=== PATIENT | male | born 1950 | race Caucasian/White ===

== ENCOUNTER 2017-06-12 13:11 | Outpatient (CLI) | payer MEDICARE ==
[2017-06-12 13:31] LABS: #Lymphocytes 1.6 thou/uL (1.20-3.40); #Monocytes 0.5 thou/uL (0.11-0.59); %Basophils 0.5 % (0.0-1.0); %Eosinophils 0.5 % (0.0-10.0); %Lymphocytes 22.7 % (21.0-51.0); %Monocytes 6.9 % (0.0-10.0); %Neutrophils 69.4 % (42.0-75.0); Hemoglobin 16.2 g/dL (14.0-18.0); Mean Corpuscular HGB CONC 33.2 g/dL (32.0-36.0); Mean Corpuscular Hemoglobin 30.8 pg (27.0-31.0); Mean Corpuscular Volume 92.8 fl (80.0-94.0); Mean Platelet Volume 6.1 fL (7.4-10.4); Platelet Count 246 thou/uL (130-400); RBC Distribution Width 12.2 % (11.5-14.5); Red Blood Cell (RBC) Count 5.26 mill/uL (4.70-6.10); White Blood Cell (WBC) Count 7.2 thou/uL (4.8-10.8)
[2017-06-12 13:43] LABS: Hemoglobin A1c 8.4 % (4.0-6.0)
[2017-06-12 13:51] LABS: ALT (SGPT) 36 U/L (8-55); AST (SGOT) 21 U/L (5-34); Albumin 4.6 g/dL (3.4-4.8); Alkaline Phosphatase 101 U/L (40-150); Anion Gap 16 mmol/L (10-20); BUN (Urea Nitrogen) 24 mg/dL (8.4-25.7); Bilirubin, Total 0.5 mg/dL (0.2-1.2); Calc. Creatinine Clearance 0 mL/min (70-130); Calcium 9.9 mg/dL (7.8-10.44); Carbon Dioxide 25 mmol/L (23-31); Cardiac Risk 5.6 (Less than 4.5); Chloride 104 mmol/L (98-107); Cholesterol 272 mg/dl (< 200 Desired); Estimated GFR-MDRD 44; Globulin 2.7 g/dL (2.4-3.5); Glucose 196 mg/dL (80-115); HDL Cholesterol 49 mg/dL (>60 Neg Risk); LDL Cholesterol, Calculated 188 mg/dL; Potassium 4.7 mmol/L (3.5-5.1); Protein, Total 7.3 g/dL (5.8-8.1); Sodium 140 mmol/L (136-145); Triglycerides 176 mg/dL (Less than 150)
== END 2017-06-12 13:12 | disposition home or self-care (01) ==
LOC: HPCALD 13:11
PROVIDERS: ATTEND Family Medicine
DX: E78.5 Hyperlipidemia, unspecified (principal); E11.9 Type 2 diabetes mellitus without complications; I10 Essential (primary) hypertension
CPT/HCPCS: 36415; 80053; 80061; 83036; 85025

== ENCOUNTER 2018-01-17 16:39 | Emergency (ER) | payer MEDICARE ==
[2018-01-17] MEDS ORDERED: Magnesium Citrate 300 ML BOT ONE (17:36)
--- NOTE | 2018-01-17 20:20 | RAD ---
ABDOMEN: Date: 01-17-18 FINDINGS: Four views were taken to cover the entire abdomen in the supine position. While there is no overt obstruction, there is a large amount of fecal material in the colon. No patho logic calcifications of concern was seen. There is evidence of old trauma to the lateral left iliac w ing. IMPRESSION: Mild constipation. POS: HOME
== END 2018-01-17 17:44 | disposition home or self-care (01) ==
LOC: BURERS 16:39
DX: K59.00 Constipation, unspecified (principal); E10.9 Type 1 diabetes mellitus without complications; I10 Essential (primary) hypertension; F17.220 Nicotine dependence, chewing tobacco, uncomplicated; Z79.84 Long term (current) use of oral hypoglycemic drugs
CPT/HCPCS: 74018

== ENCOUNTER 2018-03-20 02:52 | Emergency (ER) | payer MEDICARE ==
[2018-03-20] MEDS ORDERED: Ondansetron HCl/PF 4 MG/2 ML Vial ONE (03:26)
[2018-03-20 03:27] LABS: #Eosinphils 0.1 thou/uL (0.0-0.7); #Lymphocytes 1.8 thou/uL (1.20-3.40); #Monocytes 0.6 thou/uL (0.11-0.59); %Basophils 0.5 % (0.0-1.0); %Eosinophils 0.9 % (0.0-10.0); %Lymphocytes 23.8 % (21.0-51.0); %Neutrophils 66.7 % (42.0-75.0); Hemoglobin 14.5 g/dL (14.0-18.0); Mean Corpuscular HGB CONC 36.1 g/dL (32.0-36.0); Mean Corpuscular Hemoglobin 30.6 pg (27.0-31.0); Mean Corpuscular Volume 84.9 fl (80.0-94.0); Mean Platelet Volume 5.7 fL (7.4-10.4); Platelet Count 240 thou/uL (130-400); RBC Distribution Width 13.4 % (11.5-14.5); Red Blood Cell (RBC) Count 4.75 mill/uL (4.70-6.10); White Blood Cell (WBC) Count 7.6 thou/uL (4.8-10.8)
[2018-03-20 03:51] LABS: ALT (SGPT) 37 U/L (8-55); AST (SGOT) 19 U/L (5-34); Albumin 4.2 g/dL (3.4-4.8); Alkaline Phosphatase 91 U/L (40-150); Anion Gap 16 mmol/L (10-20); BUN (Urea Nitrogen) 22 mg/dL (8.4-25.7); Bilirubin, Total 0.4 mg/dL (0.2-1.2); Calc. Creatinine Clearance 0 mL/min (70-130); Calcium 9.9 mg/dL (7.8-10.44); Carbon Dioxide 26 mmol/L (23-31); Chloride 101 mmol/L (98-107); Estimated GFR-MDRD 40; Globulin 3.2 g/dL (2.4-3.5); Glucose 325 mg/dL (80-115); Potassium 4.2 mmol/L (3.5-5.1); Protein, Total 7.4 g/dL (5.8-8.1); Sodium 139 mmol/L (136-145)
[2018-03-20 03:52] LABS: CKMB 1.2 ng/mL (0-6.6); Troponin I Less than 0.010 ng/mL (< 0.028)
== END 2018-03-20 04:25 | disposition home or self-care (01) ==
LOC: BURERS 02:52
DX: H81.13 Benign paroxysmal vertigo, bilateral (principal); E10.9 Type 1 diabetes mellitus without complications; I10 Essential (primary) hypertension; F17.220 Nicotine dependence, chewing tobacco, uncomplicated; Z79.84 Long term (current) use of oral hypoglycemic drugs; Z79.899 Other long term (current) drug therapy; Z79.82 Long term (current) use of aspirin
CPT/HCPCS: 36416; 80053; 82553; 84484; 85025; 93005; 96361; 96374; J2405

== ENCOUNTER 2018-07-14 09:24 | Outpatient (CLI) | payer MEDICARE ==
--- NOTE | 2018-07-14 22:43 | ULT ---
CAROTID DOPPLER ULTRASOUND 07/14/18 Color duplex doppler ultrasonography of the carotid and vertebral system was performed for evaluation of vertigo. Documentary images and worksheets were provided and reviewed. The resolution was slightl y decreased due to the size of the patient's neck. The 2D images show small amounts of plaque formation around each carotid bulb. No large obstructing p laques were appreciated. Flows in the right carotid system showed peak values of 76/27 cm/s in the right ICA with a systolic v elocity ratio of 1.24. These are normal values. In the right external carotid artery, flow was 140/17 suggesting the possibility of a mild to moderate stenosis around 50%. Vertebral flow was not visuali zed on either the right or left side. The left carotid system showed peak values of 77/27 cm/s in the left ICA with a systolic velocity rat io of 1.16, also normal values. Flows in the left external carotid artery were normal at 71/11. Flow in the left vertebral was not seen. IMPRESSION: 1. Some plaque formation around each carotid bifurcation but no large obstructing plaques were s een. 2. Possible mild to moderate stenosis of the right ECA around 50%. 3. The patient's large neck decreased resolution and the technologist was unable to confirm flow in either vertebral artery. A CT angio of the neck might be a way to potentially visualize the verte brobasilar system and check for any obvious stenosis. POS: HOME
== END 2018-07-14 09:25 | disposition home or self-care (01) ==
LOC: BURULT 09:24
PROVIDERS: ATTEND Family Medicine
DX: R55 Syncope and collapse (principal); R42 Dizziness and giddiness; I65.23 Occlusion and stenosis of bilateral carotid arteries
CPT/HCPCS: 93880

== ENCOUNTER 2018-07-20 08:57 | Outpatient (CLI) | payer MEDICARE | END 2018-07-20 08:58 | disposition home or self-care (01) | LOC: BURCT 08:57 | PROVIDERS: ATTEND Family Medicine | DX: Z01.812 Encounter for preprocedural laboratory examination (principal); I77.9 Disorder of arteries and arterioles, unspecified | CPT/HCPCS: 36415; 82565 ==

== ENCOUNTER 2018-07-29 12:22 | Outpatient (CLI) | payer MEDICARE ==
--- NOTE | 2018-07-29 19:38 | CT ---
CT OF THE BRAIN WITHOUT CONTRAST: 07/29/18 Comparison is made with a 12/07/06 study. There is a very subtle low density area between the left basa l ganglia and insula. I do not see it on the 2006 study. This could be a small lacunar infarct of ind eterminate age. It would be more likely old than new. There are no findings of stroke otherwise. No b leeding or mass was seen. There is no edema. The visible paranasal sinuses and mastoid air cells are clear. The ventricular sizes are normal for age and atrophy. IMPRESSION: Very minimal, subtle low density area between the left basal ganglia and insula that could be a small lacunar infarct. The exam was otherwise unremarkable. Code T POS: HOME
--- NOTE | 2018-07-29 19:46 | CT ---
CT SOFT TISSUE NECK WITHOUT CONTRAST 07/29/18 Axial slices were acquired without IV contrast due to the patient's creatinine being too high. Axial and coronal reconstructions were done. Review of a 07/14/18 carotid and vertebral ultrasound was done . There is no evidence of mass or adenopathy of concern in the neck. Small scattered cervical nodes are seen bilaterally which are probably not significant. Regarding the carotid arteries, one can see a m oderate amount of plaque formation around each carotid bifurcation. Once one gets beyond that, there were no further calcifications in the carotid arteries. Since this is a noncontrast study, it is diff icult to say much about the vertebral arteries. One can see them in the transverse foramina. No gross vertebral artery calcifications were seen in the spinal region. I do not see significant calcificati on in the basilar artery. There is some mucosal thickening in each side of the sphenoid sinus. The other paranasal sinuses are clear. There is loss of the normal cervical lordosis. Calcification of the ligamentum nuchae is evide nt. There is disc space narrowing at most levels below C3. The C1-C2 level of the cervical spine was unremarkable. C2-C3 was unremarkable. C3-C4 shows bilateral moderate to severe foraminal narrowing, w orse on the left. There is mild right foraminal narrowing at C4-C5 and moderate left foraminal narrow ing. There is mild right foraminal narrowing and moderate to severe left foraminal narrowing at C5-C6. No narrowing is seen at C6-C7 or C7-T1. The upper mediastinum and lung apices are included on the study which were unremarkable. IMPRESSION: No findings of significance. Moderately severe cervical spondylosis. POS: HOME
== END 2018-07-29 12:23 | disposition home or self-care (01) ==
LOC: BURCT 12:22
PROVIDERS: ATTEND Family Medicine
DX: I77.9 Disorder of arteries and arterioles, unspecified (principal); M47.892 Other spondylosis, cervical region; R93.0 Abnormal findings on diagnostic imaging of skull and head, not elsewhere classified
CPT/HCPCS: 70450; 70490

== ENCOUNTER 2021-11-21 19:34 | Emergency (ER) | payer MEDICARE, OTHER ==
[2021-11-21] MEDS ORDERED: Clindamycin 150 MG CAP ONE (21:49)
== END 2021-11-21 21:53 | disposition home or self-care (01) ==
LOC: BURERS 19:34
DX: E10.621 Type 1 diabetes mellitus with foot ulcer (principal); L97.419 Non-pressure chronic ulcer of right heel and midfoot with unspecified severity; I10 Essential (primary) hypertension; F17.220 Nicotine dependence, chewing tobacco, uncomplicated
CPT/HCPCS: 99282

== ENCOUNTER 2021-12-19 15:20 | Emergency (ER) | payer MEDICARE ==
[2021-12-19 16:18] LABS: ALT (SGPT) 20 U/L (8-55); AST (SGOT) 16 U/L (5-34); Albumin 3.6 g/dL (3.4-4.8); Alkaline Phosphatase 111 U/L (40-110); Anion Gap 17 mmol/L (10-20); BUN (Urea Nitrogen) 25 mg/dL (8.4-25.7); Bilirubin, Total 0.5 mg/dL (0.2-1.2); Calc. Creatinine Clearance 0 mL/min (70-130); Calcium 9.1 mg/dL (7.8-10.44); Carbon Dioxide 20 mmol/L (23-31); Chloride 99 mmol/L (98-107); Globulin 3.2 g/dL (2.4-3.5); Glucose 389 mg/dL (83-110); Potassium 4.2 mmol/L (3.5-5.1); Protein, Total 6.8 g/dL (5.8-8.1); Sodium 132 mmol/L (136-145)
[2021-12-19] MEDS ORDERED: Insulin Regular 300 UNITS/3 ML VIAL ONE (16:18)
[2021-12-19 16:25] LABS: Hemoglobin 15.2 g/dL (14.0-18.0); Mean Corpuscular HGB CONC 33.3 g/dL (32.0-36.0); Mean Corpuscular Hemoglobin 30.1 pg (27.0-31.0); Mean Corpuscular Volume 90.3 fL (78.0-98.0); Mean Platelet Volume 6.3 fL (7.4-10.4); Platelet Count 190 thou/uL (130-400); RBC Distribution Width 12.7 % (11.5-14.5); Red Blood Cell (RBC) Count 5.06 mill/uL (4.70-6.10)
[2021-12-19 18:12] LABS: Band 14 % (5-11); Lymphocytes 3 % (21-51); MDiff Complete? YES; Monocytes 8 % (0-10); Neutrophil 75 % (42-75)
[2021-12-19 19:14] LABS: Lactic Acid 2.6 mmol/L (0.5-2.2)
== END 2021-12-19 19:30 | disposition home or self-care (01) ==
LOC: BURERS 15:20
DX: K52.9 Noninfective gastroenteritis and colitis, unspecified (principal); E86.0 Dehydration; E10.65 Type 1 diabetes mellitus with hyperglycemia; E78.5 Hyperlipidemia, unspecified; E78.3 Hyperchylomicronemia; I10 Essential (primary) hypertension; F17.220 Nicotine dependence, chewing tobacco, uncomplicated; Z79.899 Other long term (current) drug therapy
CPT/HCPCS: 36416; 71045; 80053; 83605; 83880; 84484; 85025; 93005; 96374; 36415-59; J1815

== ENCOUNTER 2021-12-20 14:01 | Outpatient (CLI) | payer MEDICARE | END 2021-12-20 14:02 | disposition home or self-care (01) | LOC: BURRAD 14:01 | PROVIDERS: ATTEND Family Medicine | DX: L97.412 Non-pressure chronic ulcer of right heel and midfoot with fat layer exposed (principal) ==

== ENCOUNTER 2022-01-09 14:21 | Inpatient (IN) | payer MEDICARE ==
[2022-01-09 16:40] VITALS: BMI 41.1
[2022-01-09] MEDS ORDERED: Loratadine 10 MG TAB PO PRN (17:25)
[2022-01-09] MEDS ORDERED: Polyethylene Glycol 3350 17 GM Packet PO PRN (17:25)
[2022-01-09] MEDS ORDERED: Calcium Carbonate 500 MG ChewTAB PO PRN (17:25)
[2022-01-09] MEDS ORDERED: Artificial Tear Sol 15 ML BOT EA EYE PRN (17:25)
[2022-01-09] MEDS ORDERED: Dextrose 50% Abboject 50 ML SYRINGE SLOW IVP PRN (17:28)
[2022-01-09] MEDS ORDERED: Dextrose 5% in Water 1,000 ML IV PRN (17:28)
[2022-01-09] MEDS ORDERED: metroNIDAZOLE 250 MG TAB PO SCH (17:45)
[2022-01-09] MEDS: HYDROcodone/Acetaminophen 5/325 mg Tablet PO PRN (17:52)
[2022-01-09] MEDS: HumaLOG 300 UNITS/3 ML VIAL SC PRN (17:52)
[2022-01-09] MEDS: Acetaminophen 325 MG TAB PO SCH (21:39)
[2022-01-09] MEDS: Atorvastatin Calcium 40 MG TAB PO SCH (21:40)
[2022-01-09] MEDS: metroNIDAZOLE 250 MG TAB PO SCH (21:40)
[2022-01-09] MEDS: Lantus 1000 UNITS/10 ML VIAL SC SCH (21:41)
[2022-01-10] MEDS: HYDROcodone/Acetaminophen 5/325 mg Tablet PO PRN ×2 (04:48→21:03)
[2022-01-10 05:31] LABS: #Basophils 0.1 thou/uL (0.0-0.2); #Eosinphils 0.1 thou/uL (0.0-0.7); #Monocytes 0.8 thou/uL (0.11-0.59); #Neutrophils 6.2 thou/uL (1.40-6.50); %Basophils 0.6 % (0.0-1.0); %Eosinophils 1.5 % (0.0-10.0); %Lymphocytes 21.6 % (21.0-51.0); %Monocytes 8.8 % (0.0-10.0); %Neutrophils 67.4 % (42.0-75.0); Hemoglobin 14.1 g/dL (14.0-18.0); Mean Corpuscular HGB CONC 33.9 g/dL (32.0-36.0); Mean Corpuscular Hemoglobin 30.7 pg (27.0-31.0); Mean Corpuscular Volume 90.6 fL (78.0-98.0); Mean Platelet Volume 6.2 fL (7.4-10.4); Platelet Count 300 thou/uL (130-400); RBC Distribution Width 13.2 % (11.5-14.5); Red Blood Cell (RBC) Count 4.58 mill/uL (4.70-6.10); White Blood Cell (WBC) Count 9.2 thou/uL (4.8-10.8)
[2022-01-10 06:13] LABS: ALT (SGPT) 22 U/L (8-55); AST (SGOT) 19 U/L (5-34); Albumin 3.2 g/dL (3.4-4.8); Alkaline Phosphatase 124 U/L (40-110); Anion Gap 15 mmol/L (10-20); BUN (Urea Nitrogen) 30 mg/dL (8.4-25.7); Bilirubin, Total 0.4 mg/dL (0.2-1.2); CRP (Inflammatory) 3.88 mg/dL (= or < 0.5); Calc. Creatinine Clearance 87 mL/min (70-130); Calcium 9.3 mg/dL (7.8-10.44); Carbon Dioxide 27 mmol/L (23-31); Chloride 102 mmol/L (98-107); Globulin 4.1 g/dL (2.4-3.5); Glucose 123 mg/dL (83-110); Protein, Total 7.3 g/dL (5.8-8.1); Sodium 140 mmol/L (136-145)
[2022-01-10] MEDS ORDERED: VANCOMYCIN 1 GM/200 ML IVPB SCH (09:00)
[2022-01-10] MEDS: Nebivolol HCl 5 MG TAB PO SCH (09:35)
[2022-01-10] MEDS: Losartan 25 MG TAB PO SCH (09:35)
[2022-01-10] MEDS: Acetaminophen 325 MG TAB PO SCH ×3 (09:36→21:06)
[2022-01-10] MEDS: Amlodipine 5 MG TAB PO SCH (09:37)
[2022-01-10] MEDS: Hydrochlorothiazide 25 MG TAB PO SCH (09:37)
[2022-01-10] MEDS: Polyethylene Glycol 3350 17 GM Packet PO SCH (09:38)
[2022-01-10] MEDS: Aspirin Chewable 81 MG TAB PO SCH (09:38)
[2022-01-10] MEDS: metroNIDAZOLE 250 MG TAB PO SCH ×3 (09:39→21:08)
[2022-01-10] MEDS: Enoxaparin Sodium 40 MG/0.4 ML SYRINGE SC SCH (09:39)
[2022-01-10] MEDS: Lantus 1000 UNITS/10 ML VIAL SC SCH ×2 (09:42→21:02)
[2022-01-10] MEDS: Vancomycin HCl 750 MG in Sodium Chloride 0.9% 250 ML 250 ML IVPB SCH (10:34)
[2022-01-10] MEDS ORDERED: Vancomycin HCl 750 MG VIAL ONE (10:44)
[2022-01-10] MEDS: Vancomycin HCl 1 GM in Sodium Chloride 0.9% 250 ML 250 ML IVPB SCH (12:07)
[2022-01-10] MEDS: HumaLOG 300 UNITS/3 ML VIAL SC PRN ×2 (12:16→17:05)
[2022-01-10] MEDS: Atorvastatin Calcium 40 MG TAB PO SCH (21:07)
[2022-01-11] MEDS: HYDROcodone/Acetaminophen 5/325 mg Tablet PO PRN ×2 (01:56→21:30)
[2022-01-11] MEDS: Losartan 25 MG TAB PO SCH (08:12)
[2022-01-11] MEDS: Aspirin Chewable 81 MG TAB PO SCH (08:12)
[2022-01-11] MEDS: Acetaminophen 325 MG TAB PO SCH ×3 (08:12→21:33)
[2022-01-11] MEDS: Enoxaparin Sodium 40 MG/0.4 ML SYRINGE SC SCH (08:13)
[2022-01-11] MEDS: Amlodipine 5 MG TAB PO SCH (08:13)
[2022-01-11] MEDS: Hydrochlorothiazide 25 MG TAB PO SCH (08:13)
[2022-01-11] MEDS: metroNIDAZOLE 250 MG TAB PO SCH ×3 (08:14→21:34)
[2022-01-11] MEDS: Nebivolol HCl 5 MG TAB PO SCH (08:14)
[2022-01-11] MEDS: Lantus 1000 UNITS/10 ML VIAL SC SCH ×2 (08:14→23:13)
[2022-01-11] MEDS: Polyethylene Glycol 3350 17 GM Packet PO SCH (08:14)
[2022-01-11 08:18] LABS: Vancomycin, Trough 19.8 ug/mL
[2022-01-11] MEDS ORDERED: Sodium Chloride 0.9% 100 ML ONE (08:39)
[2022-01-11] MEDS: Vancomycin HCl 750 MG in Sodium Chloride 0.9% 250 ML 250 ML IVPB SCH (08:47)
[2022-01-11] MEDS: Vancomycin HCl 1 GM in Sodium Chloride 0.9% 250 ML 250 ML IVPB SCH (10:10)
[2022-01-11] MEDS: HumaLOG 300 UNITS/3 ML VIAL SC PRN ×2 (17:05→21:36)
[2022-01-11] MEDS: tiZANidine HCl 4 MG TAB PO PRN (21:30)
[2022-01-11] MEDS: Melatonin 3 MG TAB PO PRN (21:32)
[2022-01-11] MEDS: Atorvastatin Calcium 40 MG TAB PO SCH (21:34)
[2022-01-12] MEDS: HYDROcodone/Acetaminophen 5/325 mg Tablet PO PRN ×2 (04:58→21:55)
[2022-01-12 06:28] LABS: SARS-CoV-2 NAA Rapid Test Not Detected (NotDetected)
[2022-01-12] MEDS: Vancomycin HCl 750 MG in Sodium Chloride 0.9% 250 ML 250 ML IVPB SCH (08:11)
[2022-01-12] MEDS: Acetaminophen 325 MG TAB PO SCH ×3 (08:25→20:24)
[2022-01-12] MEDS: Amlodipine 5 MG TAB PO SCH (08:27)
[2022-01-12] MEDS: Nebivolol HCl 5 MG TAB PO SCH (08:28)
[2022-01-12] MEDS: Hydrochlorothiazide 25 MG TAB PO SCH (08:29)
[2022-01-12] MEDS: Aspirin Chewable 81 MG TAB PO SCH (08:29)
[2022-01-12] MEDS: Losartan 25 MG TAB PO SCH (08:29)
[2022-01-12] MEDS: Enoxaparin Sodium 40 MG/0.4 ML SYRINGE SC SCH (08:31)
[2022-01-12] MEDS: Polyethylene Glycol 3350 17 GM Packet PO SCH (08:34)
[2022-01-12] MEDS: metroNIDAZOLE 250 MG TAB PO SCH ×3 (09:33→20:26)
[2022-01-12] MEDS: Lantus 1000 UNITS/10 ML VIAL SC SCH ×2 (09:33→20:36)
[2022-01-12] MEDS: Vancomycin HCl 1 GM in Sodium Chloride 0.9% 250 ML 250 ML IVPB SCH (09:38)
[2022-01-12] MEDS: HumaLOG 300 UNITS/3 ML VIAL SC PRN ×2 (12:46→17:30)
[2022-01-12] MEDS: Atorvastatin Calcium 40 MG TAB PO SCH (20:26)
[2022-01-12] MEDS: Melatonin 3 MG TAB PO PRN (21:56)
[2022-01-13 08:36] LABS: Vancomycin, Trough 19.8 ug/mL
[2022-01-13] MEDS: Lantus 1000 UNITS/10 ML VIAL SC SCH ×2 (08:39→20:30)
[2022-01-13] MEDS: HumaLOG 300 UNITS/3 ML VIAL SC PRN ×2 (08:40→11:29)
[2022-01-13] MEDS: Enoxaparin Sodium 40 MG/0.4 ML SYRINGE SC SCH (08:41)
[2022-01-13] MEDS: Losartan 25 MG TAB PO SCH (08:41)
[2022-01-13] MEDS: Amlodipine 5 MG TAB PO SCH (08:41)
[2022-01-13] MEDS: Nebivolol HCl 5 MG TAB PO SCH (08:42)
[2022-01-13] MEDS: Aspirin Chewable 81 MG TAB PO SCH (08:42)
[2022-01-13] MEDS: Hydrochlorothiazide 25 MG TAB PO SCH (08:42)
[2022-01-13] MEDS: Acetaminophen 325 MG TAB PO SCH ×3 (08:43→20:28)
[2022-01-13] MEDS: metroNIDAZOLE 250 MG TAB PO SCH ×3 (08:43→20:31)
[2022-01-13] MEDS: Polyethylene Glycol 3350 17 GM Packet PO SCH (08:45)
[2022-01-13] MEDS: Vancomycin HCl 750 MG in Sodium Chloride 0.9% 250 ML 250 ML IVPB SCH (08:53)
[2022-01-13] MEDS: Vancomycin HCl 1 GM in Sodium Chloride 0.9% 250 ML 250 ML IVPB SCH (11:04)
[2022-01-13] MEDS: HYDROcodone/Acetaminophen 5/325 mg Tablet PO PRN (20:26)
[2022-01-13] MEDS: Atorvastatin Calcium 40 MG TAB PO SCH (20:30)
[2022-01-14] MEDS: HYDROcodone/Acetaminophen 5/325 mg Tablet PO PRN ×2 (02:08→20:42)
[2022-01-14] MEDS: Nicotine 21 MG PATCH TOP SCH (08:20)
[2022-01-14] MEDS: Lantus 1000 UNITS/10 ML VIAL SC SCH ×2 (08:21→20:59)
[2022-01-14] MEDS: Saccharomyces boulardii 250 MG CAP PO SCH (08:26)
[2022-01-14] MEDS: metroNIDAZOLE 250 MG TAB PO SCH ×3 (08:27→21:04)
[2022-01-14] MEDS: Amlodipine 5 MG TAB PO SCH (08:27)
[2022-01-14] MEDS: Hydrochlorothiazide 25 MG TAB PO SCH (08:28)
[2022-01-14] MEDS: Aspirin Chewable 81 MG TAB PO SCH (08:28)
[2022-01-14] MEDS: Losartan 25 MG TAB PO SCH (08:28)
[2022-01-14] MEDS: Acetaminophen 325 MG TAB PO SCH ×3 (08:29→20:55)
[2022-01-14] MEDS: Enoxaparin Sodium 40 MG/0.4 ML SYRINGE SC SCH (08:30)
[2022-01-14] MEDS: Nebivolol HCl 5 MG TAB PO SCH (08:31)
[2022-01-14] MEDS: Vancomycin HCl 750 MG in Sodium Chloride 0.9% 250 ML 250 ML IVPB SCH ×2 (08:35→21:07)
[2022-01-14] MEDS: Polyethylene Glycol 3350 17 GM Packet PO SCH (10:48)
[2022-01-14] MEDS: Vancomycin HCl 1 GM in Sodium Chloride 0.9% 250 ML 250 ML IVPB SCH ×2 (10:50→20:53)
[2022-01-14] MEDS: HumaLOG 300 UNITS/3 ML VIAL SC PRN (12:28)
[2022-01-14] MEDS: Atorvastatin Calcium 40 MG TAB PO SCH (20:56)
[2022-01-15] MEDS: Hydrochlorothiazide 25 MG TAB PO SCH (08:17)
[2022-01-15] MEDS: Aspirin Chewable 81 MG TAB PO SCH (08:17)
[2022-01-15] MEDS: Losartan 25 MG TAB PO SCH (08:19)
[2022-01-15] MEDS: Nebivolol HCl 5 MG TAB PO SCH (08:19)
[2022-01-15] MEDS: Enoxaparin Sodium 40 MG/0.4 ML SYRINGE SC SCH (08:19)
[2022-01-15] MEDS: Amlodipine 5 MG TAB PO SCH (08:20)
[2022-01-15] MEDS: Saccharomyces boulardii 250 MG CAP PO SCH (08:20)
[2022-01-15] MEDS: metroNIDAZOLE 250 MG TAB PO SCH ×3 (08:21→20:43)
[2022-01-15] MEDS: Lantus 1000 UNITS/10 ML VIAL SC SCH ×2 (08:25→20:40)
[2022-01-15] MEDS: Nicotine 21 MG PATCH TOP SCH (08:28)
[2022-01-15] MEDS: Acetaminophen 325 MG TAB PO SCH ×3 (09:10→20:41)
[2022-01-15] MEDS: HYDROcodone/Acetaminophen 5/325 mg Tablet PO PRN (09:16)
[2022-01-15] MEDS: HumaLOG 300 UNITS/3 ML VIAL SC PRN ×2 (13:10→17:37)
[2022-01-15] MEDS: Polyethylene Glycol 3350 17 GM Packet PO SCH (15:07)
[2022-01-15] MEDS: tiZANidine HCl 4 MG TAB PO PRN (20:43)
[2022-01-15] MEDS: Atorvastatin Calcium 40 MG TAB PO SCH (20:43)
[2022-01-15] MEDS: Melatonin 3 MG TAB PO PRN (20:43)
[2022-01-15] MEDS: Vancomycin HCl 1 GM in Sodium Chloride 0.9% 250 ML 250 ML IVPB SCH (20:44)
[2022-01-15] MEDS: Vancomycin HCl 750 MG in Sodium Chloride 0.9% 250 ML 250 ML IVPB SCH (20:45)
[2022-01-16] MEDS: HYDROcodone/Acetaminophen 5/325 mg Tablet PO PRN ×3 (05:13→23:00)
[2022-01-16] MEDS: Acetaminophen 325 MG TAB PO SCH ×3 (08:45→20:30)
[2022-01-16] MEDS: Saccharomyces boulardii 250 MG CAP PO SCH (08:45)
[2022-01-16] MEDS: Enoxaparin Sodium 40 MG/0.4 ML SYRINGE SC SCH (08:45)
[2022-01-16] MEDS: Hydrochlorothiazide 25 MG TAB PO SCH (08:46)
[2022-01-16] MEDS: Amlodipine 5 MG TAB PO SCH (08:47)
[2022-01-16] MEDS: Losartan 25 MG TAB PO SCH (08:48)
[2022-01-16] MEDS: Aspirin Chewable 81 MG TAB PO SCH (08:49)
[2022-01-16] MEDS: metroNIDAZOLE 250 MG TAB PO SCH ×3 (08:49→20:30)
[2022-01-16] MEDS: Nicotine 21 MG PATCH TOP SCH (08:50)
[2022-01-16] MEDS: Nebivolol HCl 5 MG TAB PO SCH (08:50)
[2022-01-16] MEDS: Lantus 1000 UNITS/10 ML VIAL SC SCH ×2 (08:52→20:33)
[2022-01-16] MEDS: Polyethylene Glycol 3350 17 GM Packet PO SCH (09:00)
[2022-01-16] MEDS: HumaLOG 300 UNITS/3 ML VIAL SC PRN ×2 (17:15→20:36)
[2022-01-16 19:56] LABS: Vancomycin, Trough 17.9 ug/mL
[2022-01-16] MEDS: Vancomycin HCl 1 GM in Sodium Chloride 0.9% 250 ML 250 ML IVPB SCH (20:27)
[2022-01-16] MEDS: Atorvastatin Calcium 40 MG TAB PO SCH (20:29)
[2022-01-16] MEDS: Fish Oil 1,000 MG CAP PO SCH (20:29)
[2022-01-16] MEDS: Vancomycin HCl 750 MG in Sodium Chloride 0.9% 250 ML 250 ML IVPB SCH (20:38)
[2022-01-17 05:47] LABS: #Eosinphils 0.2 thou/uL (0.0-0.7); #Lymphocytes 1.4 thou/uL (1.20-3.40); #Monocytes 0.6 thou/uL (0.11-0.59); #Neutrophils 2.9 thou/uL (1.40-6.50); %Basophils 0.5 % (0.0-1.0); %Eosinophils 3.8 % (0.0-10.0); %Lymphocytes 27.8 % (21.0-51.0); %Monocytes 12.3 % (0.0-10.0); %Neutrophils 55.6 % (42.0-75.0); Hemoglobin 12.1 g/dL (14.0-18.0); Mean Corpuscular HGB CONC 32.9 g/dL (32.0-36.0); Mean Corpuscular Hemoglobin 30.4 pg (27.0-31.0); Mean Corpuscular Volume 92.5 fL (78.0-98.0); Mean Platelet Volume 6.3 fL (7.4-10.4); Platelet Count 224 thou/uL (130-400); Red Blood Cell (RBC) Count 3.97 mill/uL (4.70-6.10); White Blood Cell (WBC) Count 5.2 thou/uL (4.8-10.8)
[2022-01-17 06:06] LABS: ALT (SGPT) 32 U/L (8-55); AST (SGOT) 20 U/L (5-34); Albumin 3.1 g/dL (3.4-4.8); Alkaline Phosphatase 94 U/L (40-110); Anion Gap 13 mmol/L (10-20); BUN (Urea Nitrogen) 39 mg/dL (8.4-25.7); Bilirubin, Total 0.4 mg/dL (0.2-1.2); Calc. Creatinine Clearance 89 mL/min (70-130); Calcium 9.1 mg/dL (7.8-10.44); Carbon Dioxide 28 mmol/L (23-31); Chloride 107 mmol/L (98-107); Globulin 3.2 g/dL (2.4-3.5); Glucose 108 mg/dL (83-110); Potassium 4.1 mmol/L (3.5-5.1); Protein, Total 6.3 g/dL (5.8-8.1); Sodium 144 mmol/L (136-145)
[2022-01-17] MEDS: Enoxaparin Sodium 40 MG/0.4 ML SYRINGE SC SCH (08:44)
[2022-01-17] MEDS: Acetaminophen 325 MG TAB PO SCH ×3 (08:46→20:32)
[2022-01-17] MEDS: Saccharomyces boulardii 250 MG CAP PO SCH (08:49)
[2022-01-17] MEDS: Aspirin Chewable 81 MG TAB PO SCH (08:49)
[2022-01-17] MEDS: Nebivolol HCl 5 MG TAB PO SCH (08:49)
[2022-01-17] MEDS: Fish Oil 1,000 MG CAP PO SCH ×2 (08:49→20:33)
[2022-01-17] MEDS: Amlodipine 5 MG TAB PO SCH (08:50)
[2022-01-17] MEDS: Losartan 25 MG TAB PO SCH (08:50)
[2022-01-17] MEDS: Hydrochlorothiazide 25 MG TAB PO SCH (08:52)
[2022-01-17] MEDS: Lantus 1000 UNITS/10 ML VIAL SC SCH ×2 (08:54→20:56)
[2022-01-17] MEDS: metroNIDAZOLE 250 MG TAB PO SCH ×3 (08:57→20:34)
[2022-01-17] MEDS: Polyethylene Glycol 3350 17 GM Packet PO SCH (08:58)
[2022-01-17] MEDS: Nicotine 21 MG PATCH TOP SCH (09:03)
[2022-01-17] MEDS: HumaLOG 300 UNITS/3 ML VIAL SC PRN ×3 (11:56→20:54)
[2022-01-17] MEDS: Vancomycin HCl 1 GM in Sodium Chloride 0.9% 250 ML 250 ML IVPB SCH (20:29)
[2022-01-17] MEDS: Vancomycin HCl 750 MG in Sodium Chloride 0.9% 250 ML 250 ML IVPB SCH (20:30)
[2022-01-17] MEDS: Atorvastatin Calcium 40 MG TAB PO SCH (20:33)
[2022-01-17] MEDS: Melatonin 3 MG TAB PO PRN (20:34)
[2022-01-18] MEDS: HYDROcodone/Acetaminophen 5/325 mg Tablet PO PRN (02:10)
[2022-01-18] MEDS: Lantus 1000 UNITS/10 ML VIAL SC SCH ×2 (09:10→21:07)
[2022-01-18] MEDS: Fish Oil 1,000 MG CAP PO SCH ×2 (09:11→20:52)
[2022-01-18] MEDS: Losartan 25 MG TAB PO SCH (09:11)
[2022-01-18] MEDS: Aspirin Chewable 81 MG TAB PO SCH (09:11)
[2022-01-18] MEDS: Hydrochlorothiazide 25 MG TAB PO SCH (09:12)
[2022-01-18] MEDS: Amlodipine 5 MG TAB PO SCH (09:13)
[2022-01-18] MEDS: Acetaminophen 325 MG TAB PO SCH ×3 (09:13→20:52)
[2022-01-18] MEDS: Nebivolol HCl 5 MG TAB PO SCH (09:13)
[2022-01-18] MEDS: Enoxaparin Sodium 40 MG/0.4 ML SYRINGE SC SCH (09:14)
[2022-01-18] MEDS: Nicotine 21 MG PATCH TOP SCH (09:15)
[2022-01-18] MEDS: Saccharomyces boulardii 250 MG CAP PO SCH (09:15)
[2022-01-18] MEDS: metroNIDAZOLE 250 MG TAB PO SCH ×3 (09:15→20:52)
[2022-01-18] MEDS: Polyethylene Glycol 3350 17 GM Packet PO SCH (09:15)
[2022-01-18] MEDS: HumaLOG 300 UNITS/3 ML VIAL SC PRN ×3 (11:44→21:10)
[2022-01-18] MEDS ORDERED: Nystatin Powder 15 GM BOT TOP PRN (14:39)
[2022-01-18] MEDS: Atorvastatin Calcium 40 MG TAB PO SCH (20:52)
[2022-01-18] MEDS: Melatonin 3 MG TAB PO PRN (20:52)
[2022-01-18] MEDS: Vancomycin HCl 1 GM in Sodium Chloride 0.9% 250 ML 250 ML IVPB SCH (20:56)
[2022-01-18] MEDS: Vancomycin HCl 750 MG in Sodium Chloride 0.9% 250 ML 250 ML IVPB SCH (20:56)
[2022-01-19] MEDS: HYDROcodone/Acetaminophen 5/325 mg Tablet PO PRN (03:41)
[2022-01-19] MEDS: Enoxaparin Sodium 40 MG/0.4 ML SYRINGE SC SCH (08:54)
[2022-01-19] MEDS: Nebivolol HCl 5 MG TAB PO SCH (08:55)
[2022-01-19] MEDS: Fish Oil 1,000 MG CAP PO SCH ×2 (08:56→22:01)
[2022-01-19] MEDS: Acetaminophen 325 MG TAB PO SCH ×3 (08:56→22:02)
[2022-01-19] MEDS: Aspirin Chewable 81 MG TAB PO SCH (08:57)
[2022-01-19] MEDS: Hydrochlorothiazide 25 MG TAB PO SCH (08:57)
[2022-01-19] MEDS: Losartan 25 MG TAB PO SCH (08:58)
[2022-01-19] MEDS: Nicotine 21 MG PATCH TOP SCH (08:59)
[2022-01-19] MEDS: metroNIDAZOLE 250 MG TAB PO SCH ×3 (08:59→22:02)
[2022-01-19] MEDS: Saccharomyces boulardii 250 MG CAP PO SCH (08:59)
[2022-01-19] MEDS: Amlodipine 5 MG TAB PO SCH (08:59)
[2022-01-19] MEDS: Polyethylene Glycol 3350 17 GM Packet PO SCH (09:00)
[2022-01-19] MEDS: Lantus 1000 UNITS/10 ML VIAL SC SCH ×2 (09:07→22:03)
[2022-01-19] MEDS: HumaLOG 300 UNITS/3 ML VIAL SC PRN ×4 (09:12→22:03)
[2022-01-19 20:41] LABS: Vancomycin, Trough 16.4 ug/mL
[2022-01-19] MEDS: Vancomycin HCl 1 GM in Sodium Chloride 0.9% 250 ML 250 ML IVPB SCH (20:55)
[2022-01-19] MEDS: Vancomycin HCl 750 MG in Sodium Chloride 0.9% 250 ML 250 ML IVPB SCH (20:55)
[2022-01-19] MEDS: Atorvastatin Calcium 40 MG TAB PO SCH (22:01)
[2022-01-19] MEDS: Melatonin 3 MG TAB PO PRN (22:12)
[2022-01-20] MEDS: HYDROcodone/Acetaminophen 5/325 mg Tablet PO PRN ×2 (03:40→21:09)
[2022-01-20] MEDS: Nicotine 21 MG PATCH TOP SCH (08:33)
[2022-01-20] MEDS: Enoxaparin Sodium 40 MG/0.4 ML SYRINGE SC SCH (08:34)
[2022-01-20] MEDS: Acetaminophen 325 MG TAB PO SCH ×3 (08:36→21:11)
[2022-01-20] MEDS: Saccharomyces boulardii 250 MG CAP PO SCH (08:38)
[2022-01-20] MEDS: Losartan 25 MG TAB PO SCH (08:39)
[2022-01-20] MEDS: Amlodipine 5 MG TAB PO SCH (08:39)
[2022-01-20] MEDS: Aspirin Chewable 81 MG TAB PO SCH (08:40)
[2022-01-20] MEDS: Fish Oil 1,000 MG CAP PO SCH ×2 (08:40→21:11)
[2022-01-20] MEDS: Hydrochlorothiazide 25 MG TAB PO SCH (08:40)
[2022-01-20] MEDS: Lantus 1000 UNITS/10 ML VIAL SC SCH ×2 (08:42→21:16)
[2022-01-20] MEDS: Nebivolol HCl 5 MG TAB PO SCH (08:46)
[2022-01-20] MEDS: Polyethylene Glycol 3350 17 GM Packet PO SCH (08:47)
[2022-01-20] MEDS: HumaLOG 300 UNITS/3 ML VIAL SC PRN ×3 (11:21→21:21)
[2022-01-20 14:39] LABS: SARS-CoV-2 PCR by NAA Not Detected (NotDetected)
[2022-01-20] MEDS: metroNIDAZOLE 250 MG TAB PO SCH ×2 (14:46→21:15)
[2022-01-20] MEDS: Vancomycin HCl 750 MG in Sodium Chloride 0.9% 250 ML 250 ML IVPB SCH (21:07)
[2022-01-20] MEDS: Vancomycin HCl 1 GM in Sodium Chloride 0.9% 250 ML 250 ML IVPB SCH (21:08)
[2022-01-20] MEDS: Atorvastatin Calcium 40 MG TAB PO SCH (21:09)
[2022-01-20] MEDS: tiZANidine HCl 4 MG TAB PO PRN (21:09)
[2022-01-21] MEDS: HYDROcodone/Acetaminophen 5/325 mg Tablet PO PRN (04:56)
[2022-01-21] MEDS: Nebivolol HCl 5 MG TAB PO SCH (09:11)
[2022-01-21] MEDS: Hydrochlorothiazide 25 MG TAB PO SCH (09:12)
[2022-01-21] MEDS: Acetaminophen 325 MG TAB PO SCH ×3 (09:12→20:39)
[2022-01-21] MEDS: Aspirin Chewable 81 MG TAB PO SCH (09:13)
[2022-01-21] MEDS: Amlodipine 5 MG TAB PO SCH (09:14)
[2022-01-21] MEDS: Fish Oil 1,000 MG CAP PO SCH ×2 (09:14→20:41)
[2022-01-21] MEDS: Saccharomyces boulardii 250 MG CAP PO SCH (09:14)
[2022-01-21] MEDS: Losartan 25 MG TAB PO SCH (09:14)
[2022-01-21] MEDS: Enoxaparin Sodium 40 MG/0.4 ML SYRINGE SC SCH (09:15)
[2022-01-21] MEDS: metroNIDAZOLE 250 MG TAB PO SCH ×3 (09:16→20:51)
[2022-01-21] MEDS: Lantus 1000 UNITS/10 ML VIAL SC SCH ×2 (09:17→20:46)
[2022-01-21] MEDS: Nicotine 21 MG PATCH TOP SCH (09:17)
[2022-01-21] MEDS: HumaLOG 300 UNITS/3 ML VIAL SC PRN ×3 (09:18→20:43)
[2022-01-21] MEDS: Polyethylene Glycol 3350 17 GM Packet PO SCH (09:19)
[2022-01-21] MEDS: Vancomycin HCl 1 GM in Sodium Chloride 0.9% 250 ML 250 ML IVPB SCH (20:35)
[2022-01-21] MEDS: Atorvastatin Calcium 40 MG TAB PO SCH (20:41)
[2022-01-21] MEDS: Vancomycin HCl 750 MG in Sodium Chloride 0.9% 250 ML 250 ML IVPB SCH (20:49)
[2022-01-21] MEDS: Melatonin 3 MG TAB PO PRN (20:52)
[2022-01-22] MEDS: Enoxaparin Sodium 40 MG/0.4 ML SYRINGE SC SCH (08:43)
[2022-01-22] MEDS: Fish Oil 1,000 MG CAP PO SCH ×2 (08:43→20:04)
[2022-01-22] MEDS: Nicotine 21 MG PATCH TOP SCH (08:43)
[2022-01-22] MEDS: Acetaminophen 325 MG TAB PO SCH ×3 (08:44→20:05)
[2022-01-22] MEDS: Amlodipine 5 MG TAB PO SCH (08:45)
[2022-01-22] MEDS: Saccharomyces boulardii 250 MG CAP PO SCH (08:46)
[2022-01-22] MEDS: Losartan 25 MG TAB PO SCH (08:46)
[2022-01-22] MEDS: Hydrochlorothiazide 25 MG TAB PO SCH (08:47)
[2022-01-22] MEDS: Aspirin Chewable 81 MG TAB PO SCH (08:48)
[2022-01-22] MEDS: metroNIDAZOLE 250 MG TAB PO SCH ×3 (08:48→20:04)
[2022-01-22] MEDS: Nebivolol HCl 5 MG TAB PO SCH (08:51)
[2022-01-22] MEDS: Lantus 1000 UNITS/10 ML VIAL SC SCH ×2 (09:01→20:06)
[2022-01-22] MEDS: HumaLOG 300 UNITS/3 ML VIAL SC PRN ×2 (09:05→11:24)
[2022-01-22] MEDS: HYDROcodone/Acetaminophen 5/325 mg Tablet PO PRN (11:20)
[2022-01-22] MEDS: Polyethylene Glycol 3350 17 GM Packet PO SCH (11:24)
[2022-01-22] MEDS: Atorvastatin Calcium 40 MG TAB PO SCH (20:04)
[2022-01-22] MEDS: Vancomycin HCl 750 MG in Sodium Chloride 0.9% 250 ML 250 ML IVPB SCH (20:07)
[2022-01-22] MEDS: Vancomycin HCl 1 GM in Sodium Chloride 0.9% 250 ML 250 ML IVPB SCH (20:08)
[2022-01-22] MEDS: Melatonin 3 MG TAB PO PRN (20:29)
[2022-01-23] MEDS: HYDROcodone/Acetaminophen 5/325 mg Tablet PO PRN ×3 (03:28→23:19)
[2022-01-23] MEDS: Hydrochlorothiazide 25 MG TAB PO SCH (10:19)
[2022-01-23] MEDS: Fish Oil 1,000 MG CAP PO SCH ×2 (10:20→20:34)
[2022-01-23] MEDS: Lantus 1000 UNITS/10 ML VIAL SC SCH ×2 (10:20→20:33)
[2022-01-23] MEDS: Amlodipine 5 MG TAB PO SCH (10:20)
[2022-01-23] MEDS: Saccharomyces boulardii 250 MG CAP PO SCH (10:21)
[2022-01-23] MEDS: Aspirin Chewable 81 MG TAB PO SCH (10:21)
[2022-01-23] MEDS: Losartan 25 MG TAB PO SCH (10:22)
[2022-01-23] MEDS: Acetaminophen 325 MG TAB PO SCH ×3 (10:22→20:35)
[2022-01-23] MEDS: metroNIDAZOLE 250 MG TAB PO SCH ×3 (10:23→20:34)
[2022-01-23] MEDS: Nebivolol HCl 5 MG TAB PO SCH (10:23)
[2022-01-23] MEDS: Enoxaparin Sodium 40 MG/0.4 ML SYRINGE SC SCH (10:24)
[2022-01-23] MEDS: Nicotine 21 MG PATCH TOP SCH (10:44)
[2022-01-23] MEDS: Polyethylene Glycol 3350 17 GM Packet PO SCH (11:00)
[2022-01-23] MEDS: HumaLOG 300 UNITS/3 ML VIAL SC PRN ×2 (17:01→20:45)
[2022-01-23] MEDS: Vancomycin HCl 750 MG in Sodium Chloride 0.9% 250 ML 250 ML IVPB SCH (20:32)
[2022-01-23] MEDS: Vancomycin HCl 1 GM in Sodium Chloride 0.9% 250 ML 250 ML IVPB SCH (20:33)
[2022-01-23] MEDS: Atorvastatin Calcium 40 MG TAB PO SCH (20:34)
[2022-01-23] MEDS: Melatonin 3 MG TAB PO PRN (20:45)
[2022-01-24 04:50] LABS: #Eosinphils 0.2 thou/uL (0.0-0.7); #Lymphocytes 1.4 thou/uL (1.20-3.40); #Monocytes 0.8 thou/uL (0.11-0.59); #Neutrophils 3.9 thou/uL (1.40-6.50); %Basophils 0.4 % (0.0-1.0); %Eosinophils 2.7 % (0.0-10.0); %Lymphocytes 22.3 % (21.0-51.0); %Monocytes 12.3 % (0.0-10.0); %Neutrophils 62.3 % (42.0-75.0); Hemoglobin 12.5 g/dL (14.0-18.0); Mean Corpuscular HGB CONC 33.6 g/dL (32.0-36.0); Mean Corpuscular Hemoglobin 30.6 pg (27.0-31.0); Mean Corpuscular Volume 91.3 fL (78.0-98.0); Platelet Count 201 thou/uL (130-400); RBC Distribution Width 14.5 % (11.5-14.5); Red Blood Cell (RBC) Count 4.08 mill/uL (4.70-6.10); White Blood Cell (WBC) Count 6.2 thou/uL (4.8-10.8)
[2022-01-24 05:01] LABS: ALT (SGPT) 25 U/L (8-55); AST (SGOT) 16 U/L (5-34); Albumin 3.2 g/dL (3.4-4.8); Alkaline Phosphatase 102 U/L (40-110); Anion Gap 14 mmol/L (10-20); BUN (Urea Nitrogen) 41 mg/dL (8.4-25.7); Bilirubin, Total 0.4 mg/dL (0.2-1.2); Calc. Creatinine Clearance 97 mL/min (70-130); Calcium 9.4 mg/dL (7.8-10.44); Carbon Dioxide 28 mmol/L (23-31); Chloride 105 mmol/L (98-107); Globulin 3.1 g/dL (2.4-3.5); Glucose 140 mg/dL (83-110); Potassium 4.4 mmol/L (3.5-5.1); Protein, Total 6.3 g/dL (5.8-8.1); Sodium 143 mmol/L (136-145)
[2022-01-24] MEDS: Enoxaparin Sodium 40 MG/0.4 ML SYRINGE SC SCH (08:24)
[2022-01-24] MEDS: Polyethylene Glycol 3350 17 GM Packet PO SCH (08:24)
[2022-01-24] MEDS: metroNIDAZOLE 250 MG TAB PO SCH ×3 (08:25→20:42)
[2022-01-24] MEDS: Hydrochlorothiazide 25 MG TAB PO SCH (08:25)
[2022-01-24] MEDS: Acetaminophen 325 MG TAB PO SCH ×3 (08:26→20:40)
[2022-01-24] MEDS: Aspirin Chewable 81 MG TAB PO SCH (08:26)
[2022-01-24] MEDS: Fish Oil 1,000 MG CAP PO SCH ×2 (08:26→20:40)
[2022-01-24] MEDS: Saccharomyces boulardii 250 MG CAP PO SCH (08:27)
[2022-01-24] MEDS: Losartan 25 MG TAB PO SCH (08:27)
[2022-01-24] MEDS: Amlodipine 5 MG TAB PO SCH (08:27)
[2022-01-24] MEDS: Lantus 1000 UNITS/10 ML VIAL SC SCH ×2 (08:28→20:45)
[2022-01-24] MEDS: Nebivolol HCl 5 MG TAB PO SCH (08:39)
[2022-01-24] MEDS: HYDROcodone/Acetaminophen 5/325 mg Tablet PO PRN ×2 (09:38→22:49)
[2022-01-24] MEDS: HumaLOG 300 UNITS/3 ML VIAL SC PRN (15:29)
[2022-01-24] MEDS: Nicotine 21 MG PATCH TOP SCH (15:56)
[2022-01-24 20:17] LABS: Vancomycin, Trough 21.9 ug/mL
[2022-01-24] MEDS: Vancomycin HCl 1 GM in Sodium Chloride 0.9% 250 ML 250 ML IVPB SCH (20:29)
[2022-01-24] MEDS: Vancomycin HCl 750 MG in Sodium Chloride 0.9% 250 ML 250 ML IVPB SCH (20:35)
[2022-01-24] MEDS: Atorvastatin Calcium 40 MG TAB PO SCH (20:42)
[2022-01-24] MEDS: Melatonin 3 MG TAB PO PRN (20:44)
[2022-01-25] MEDS: HYDROcodone/Acetaminophen 5/325 mg Tablet PO PRN ×2 (08:00→20:27)
[2022-01-25] MEDS: Enoxaparin Sodium 40 MG/0.4 ML SYRINGE SC SCH (08:58)
[2022-01-25] MEDS: Saccharomyces boulardii 250 MG CAP PO SCH (08:59)
[2022-01-25] MEDS: Hydrochlorothiazide 25 MG TAB PO SCH (08:59)
[2022-01-25] MEDS: Losartan 25 MG TAB PO SCH (09:00)
[2022-01-25] MEDS: Amlodipine 5 MG TAB PO SCH (09:00)
[2022-01-25] MEDS: Fish Oil 1,000 MG CAP PO SCH ×2 (09:01→20:24)
[2022-01-25] MEDS: metroNIDAZOLE 250 MG TAB PO SCH ×3 (09:02→20:24)
[2022-01-25] MEDS: Aspirin Chewable 81 MG TAB PO SCH (09:03)
[2022-01-25] MEDS: Acetaminophen 325 MG TAB PO SCH ×3 (09:03→21:00)
[2022-01-25] MEDS: Nebivolol HCl 5 MG TAB PO SCH (09:03)
[2022-01-25] MEDS: Polyethylene Glycol 3350 17 GM Packet PO SCH (09:04)
[2022-01-25] MEDS: Lantus 1000 UNITS/10 ML VIAL SC SCH ×3 (09:10→20:49)
[2022-01-25] MEDS: HumaLOG 300 UNITS/3 ML VIAL SC PRN ×2 (12:08→17:10)
[2022-01-25] MEDS: Nicotine 21 MG PATCH TOP SCH (15:45)
[2022-01-25] MEDS: Atorvastatin Calcium 40 MG TAB PO SCH (20:25)
[2022-01-25] MEDS: Vancomycin HCl 1 GM in Sodium Chloride 0.9% 250 ML 250 ML IVPB SCH (20:26)
[2022-01-25 20:35] LABS: Vancomycin, Trough 19.1 ug/mL
[2022-01-25] MEDS: Melatonin 3 MG TAB PO PRN (20:53)
[2022-01-26] MEDS: HYDROcodone/Acetaminophen 5/325 mg Tablet PO PRN ×3 (00:39→21:44)
[2022-01-26] MEDS: Losartan 25 MG TAB PO SCH (08:26)
[2022-01-26] MEDS: Enoxaparin Sodium 40 MG/0.4 ML SYRINGE SC SCH (08:26)
[2022-01-26] MEDS: Fish Oil 1,000 MG CAP PO SCH ×2 (08:26→20:21)
[2022-01-26] MEDS: Acetaminophen 325 MG TAB PO SCH ×3 (08:27→20:21)
[2022-01-26] MEDS: Saccharomyces boulardii 250 MG CAP PO SCH (08:28)
[2022-01-26] MEDS: Amlodipine 5 MG TAB PO SCH (08:28)
[2022-01-26] MEDS: Nebivolol HCl 5 MG TAB PO SCH (08:28)
[2022-01-26] MEDS: Hydrochlorothiazide 25 MG TAB PO SCH (08:29)
[2022-01-26] MEDS: metroNIDAZOLE 250 MG TAB PO SCH ×3 (08:30→20:21)
[2022-01-26] MEDS: Aspirin Chewable 81 MG TAB PO SCH (08:30)
[2022-01-26] MEDS: Lantus 1000 UNITS/10 ML VIAL SC SCH ×2 (08:30→20:19)
[2022-01-26] MEDS: Polyethylene Glycol 3350 17 GM Packet PO SCH (08:41)
[2022-01-26] MEDS: HumaLOG 300 UNITS/3 ML VIAL SC PRN ×3 (12:25→20:20)
[2022-01-26] MEDS: Nicotine 21 MG PATCH TOP SCH (15:13)
[2022-01-26] MEDS: Vancomycin HCl 1 GM in Sodium Chloride 0.9% 250 ML 250 ML IVPB SCH (20:17)
[2022-01-26] MEDS: Vancomycin HCl 750 MG in Sodium Chloride 0.9% 250 ML 250 ML IVPB SCH (20:18)
[2022-01-26] MEDS: Atorvastatin Calcium 40 MG TAB PO SCH (20:21)
[2022-01-26] MEDS: Melatonin 3 MG TAB PO PRN (21:44)
[2022-01-27] MEDS: HYDROcodone/Acetaminophen 5/325 mg Tablet PO PRN ×3 (02:50→21:02)
[2022-01-27] MEDS: Nebivolol HCl 5 MG TAB PO SCH (08:30)
[2022-01-27] MEDS: Losartan 25 MG TAB PO SCH (08:30)
[2022-01-27] MEDS: metroNIDAZOLE 250 MG TAB PO SCH ×3 (08:30→20:39)
[2022-01-27] MEDS: Hydrochlorothiazide 25 MG TAB PO SCH (08:31)
[2022-01-27] MEDS: Fish Oil 1,000 MG CAP PO SCH ×2 (08:31→20:39)
[2022-01-27] MEDS: Aspirin Chewable 81 MG TAB PO SCH (08:31)
[2022-01-27] MEDS: Amlodipine 5 MG TAB PO SCH (08:32)
[2022-01-27] MEDS: Saccharomyces boulardii 250 MG CAP PO SCH (08:33)
[2022-01-27] MEDS: Acetaminophen 325 MG TAB PO SCH ×3 (08:33→20:39)
[2022-01-27] MEDS: Polyethylene Glycol 3350 17 GM Packet PO SCH (08:33)
[2022-01-27] MEDS: Lantus 1000 UNITS/10 ML VIAL SC SCH ×2 (08:33→20:38)
[2022-01-27] MEDS: Enoxaparin Sodium 40 MG/0.4 ML SYRINGE SC SCH (08:34)
[2022-01-27] MEDS: HumaLOG 300 UNITS/3 ML VIAL SC PRN ×3 (08:34→20:38)
[2022-01-27 16:01] LABS: SARS-CoV-2 PCR by NAA Not Detected (NotDetected)
[2022-01-27] MEDS: Nicotine 21 MG PATCH TOP SCH (17:08)
[2022-01-27 19:19] LABS: Vancomycin, Trough 17.4 ug/mL
[2022-01-27] MEDS: Atorvastatin Calcium 40 MG TAB PO SCH (20:39)
[2022-01-27] MEDS: Vancomycin HCl 1 GM in Sodium Chloride 0.9% 250 ML 250 ML IVPB SCH (20:40)
[2022-01-27] MEDS: Vancomycin HCl 750 MG in Sodium Chloride 0.9% 250 ML 250 ML IVPB SCH (20:41)
[2022-01-27] MEDS: Melatonin 3 MG TAB PO PRN (21:03)
[2022-01-28] MEDS: HYDROcodone/Acetaminophen 5/325 mg Tablet PO PRN ×3 (07:31→21:06)
[2022-01-28] MEDS: Lantus 1000 UNITS/10 ML VIAL SC SCH ×2 (09:13→21:08)
[2022-01-28] MEDS: HumaLOG 300 UNITS/3 ML VIAL SC PRN ×3 (09:13→21:10)
[2022-01-28] MEDS: Enoxaparin Sodium 40 MG/0.4 ML SYRINGE SC SCH (09:14)
[2022-01-28] MEDS: Losartan 25 MG TAB PO SCH (09:15)
[2022-01-28] MEDS: Hydrochlorothiazide 25 MG TAB PO SCH (09:15)
[2022-01-28] MEDS: Fish Oil 1,000 MG CAP PO SCH ×2 (09:15→21:05)
[2022-01-28] MEDS: Saccharomyces boulardii 250 MG CAP PO SCH (09:15)
[2022-01-28] MEDS: Aspirin Chewable 81 MG TAB PO SCH (09:16)
[2022-01-28] MEDS: Amlodipine 5 MG TAB PO SCH (09:16)
[2022-01-28] MEDS: Nebivolol HCl 5 MG TAB PO SCH (09:17)
[2022-01-28] MEDS: Acetaminophen 325 MG TAB PO SCH ×3 (09:17→21:07)
[2022-01-28] MEDS: metroNIDAZOLE 250 MG TAB PO SCH ×3 (09:17→21:06)
[2022-01-28] MEDS: Polyethylene Glycol 3350 17 GM Packet PO SCH (09:20)
[2022-01-28] MEDS: Nicotine 21 MG PATCH TOP SCH (16:35)
[2022-01-28] MEDS: Vancomycin HCl 1 GM in Sodium Chloride 0.9% 250 ML 250 ML IVPB SCH (21:04)
[2022-01-28] MEDS: Melatonin 3 MG TAB PO PRN (21:05)
[2022-01-28] MEDS: Vancomycin HCl 750 MG in Sodium Chloride 0.9% 250 ML 250 ML IVPB SCH (21:05)
[2022-01-28] MEDS: Atorvastatin Calcium 40 MG TAB PO SCH (21:06)
[2022-01-29] MEDS: HYDROcodone/Acetaminophen 5/325 mg Tablet PO PRN ×3 (02:41→20:39)
[2022-01-29] MEDS: Acetaminophen 325 MG TAB PO SCH ×3 (09:30→20:41)
[2022-01-29] MEDS: Losartan 25 MG TAB PO SCH (09:52)
[2022-01-29] MEDS: Aspirin Chewable 81 MG TAB PO SCH (09:52)
[2022-01-29] MEDS: Saccharomyces boulardii 250 MG CAP PO SCH (09:52)
[2022-01-29] MEDS: Fish Oil 1,000 MG CAP PO SCH ×2 (09:52→20:38)
[2022-01-29] MEDS: Amlodipine 5 MG TAB PO SCH (09:53)
[2022-01-29] MEDS: Hydrochlorothiazide 25 MG TAB PO SCH (09:53)
[2022-01-29] MEDS: Nebivolol HCl 5 MG TAB PO SCH (09:53)
[2022-01-29] MEDS: Enoxaparin Sodium 40 MG/0.4 ML SYRINGE SC SCH (09:54)
[2022-01-29] MEDS: Lantus 1000 UNITS/10 ML VIAL SC SCH ×2 (09:55→20:42)
[2022-01-29] MEDS: Polyethylene Glycol 3350 17 GM Packet PO SCH (09:56)
[2022-01-29] MEDS: metroNIDAZOLE 250 MG TAB PO SCH ×3 (10:00→20:41)
[2022-01-29] MEDS: HumaLOG 300 UNITS/3 ML VIAL SC PRN ×2 (16:43→20:42)
[2022-01-29] MEDS: Nicotine 21 MG PATCH TOP SCH (16:44)
[2022-01-29 19:18] LABS: Vancomycin, Trough 19.9 ug/mL
[2022-01-29] MEDS: Vancomycin HCl 750 MG in Sodium Chloride 0.9% 250 ML 250 ML IVPB SCH (20:34)
[2022-01-29] MEDS: Vancomycin HCl 1 GM in Sodium Chloride 0.9% 250 ML 250 ML IVPB SCH (20:36)
[2022-01-29] MEDS: Atorvastatin Calcium 40 MG TAB PO SCH (20:38)
[2022-01-29] MEDS: Melatonin 3 MG TAB PO PRN (20:41)
[2022-01-30] MEDS: HYDROcodone/Acetaminophen 5/325 mg Tablet PO PRN ×3 (02:59→21:11)
[2022-01-30] MEDS: Hydrochlorothiazide 25 MG TAB PO SCH (09:46)
[2022-01-30] MEDS: Enoxaparin Sodium 40 MG/0.4 ML SYRINGE SC SCH (09:46)
[2022-01-30] MEDS: metroNIDAZOLE 250 MG TAB PO SCH ×3 (09:47→21:11)
[2022-01-30] MEDS: Losartan 25 MG TAB PO SCH (09:47)
[2022-01-30] MEDS: Fish Oil 1,000 MG CAP PO SCH ×2 (09:47→21:10)
[2022-01-30] MEDS: Aspirin Chewable 81 MG TAB PO SCH (09:47)
[2022-01-30] MEDS: Saccharomyces boulardii 250 MG CAP PO SCH (09:47)
[2022-01-30] MEDS: Amlodipine 5 MG TAB PO SCH (09:48)
[2022-01-30] MEDS: Acetaminophen 325 MG TAB PO SCH ×3 (09:49→21:43)
[2022-01-30] MEDS: Polyethylene Glycol 3350 17 GM Packet PO SCH (09:50)
[2022-01-30] MEDS: Nebivolol HCl 5 MG TAB PO SCH (09:50)
[2022-01-30] MEDS: Lantus 1000 UNITS/10 ML VIAL SC SCH ×2 (09:56→21:15)
[2022-01-30] MEDS: Nicotine 21 MG PATCH TOP SCH (18:15)
[2022-01-30 20:08] LABS: Vancomycin, Trough 20.1 ug/mL
[2022-01-30 20:10] LABS: ALT (SGPT) 21 U/L (8-55); AST (SGOT) 14 U/L (5-34); Albumin 3.4 g/dL (3.4-4.8); Alkaline Phosphatase 96 U/L (40-110); Anion Gap 15 mmol/L (10-20); BUN (Urea Nitrogen) 43 mg/dL (8.4-25.7); Bilirubin, Total 0.4 mg/dL (0.2-1.2); Calc. Creatinine Clearance 85 mL/min (70-130); Calcium 9.1 mg/dL (7.8-10.44); Carbon Dioxide 27 mmol/L (23-31); Chloride 103 mmol/L (98-107); Globulin 3.1 g/dL (2.4-3.5); Glucose 135 mg/dL (83-110); Protein, Total 6.5 g/dL (5.8-8.1); Sodium 141 mmol/L (136-145)
[2022-01-30 20:22] LABS: #Eosinphils 0.1 thou/uL (0.0-0.7); #Lymphocytes 1.5 thou/uL (1.20-3.40); #Monocytes 0.7 thou/uL (0.11-0.59); %Basophils 0.7 % (0.0-1.0); %Eosinophils 1.9 % (0.0-10.0); %Lymphocytes 23.6 % (21.0-51.0); %Monocytes 11.1 % (0.0-10.0); %Neutrophils 62.6 % (42.0-75.0); Mean Corpuscular HGB CONC 33.1 g/dL (32.0-36.0); Mean Corpuscular Hemoglobin 30.9 pg (27.0-31.0); Mean Corpuscular Volume 93.3 fL (78.0-98.0); Mean Platelet Volume 6.2 fL (7.4-10.4); Platelet Count 197 thou/uL (130-400); RBC Distribution Width 14.5 % (11.5-14.5); White Blood Cell (WBC) Count 6.3 thou/uL (4.8-10.8)
[2022-01-30] MEDS: Atorvastatin Calcium 40 MG TAB PO SCH (21:11)
[2022-01-30] MEDS: Melatonin 3 MG TAB PO PRN (21:13)
[2022-01-30] MEDS: Vancomycin HCl 1 GM in Sodium Chloride 0.9% 250 ML 250 ML IVPB SCH (21:16)
[2022-01-30] MEDS: Vancomycin HCl 750 MG in Sodium Chloride 0.9% 250 ML 250 ML IVPB SCH (21:17)
[2022-01-31] MEDS: HYDROcodone/Acetaminophen 5/325 mg Tablet PO PRN ×2 (01:31→08:20)
[2022-01-31 05:25] LABS: #Eosinphils 0.1 thou/uL (0.0-0.7); #Lymphocytes 1.4 thou/uL (1.20-3.40); #Monocytes 0.7 thou/uL (0.11-0.59); #Neutrophils 3.3 thou/uL (1.40-6.50); %Basophils 0.3 % (0.0-1.0); %Eosinophils 2.1 % (0.0-10.0); %Lymphocytes 26.1 % (21.0-51.0); %Neutrophils 59.5 % (42.0-75.0); Hemoglobin 11.8 g/dL (14.0-18.0); Mean Corpuscular HGB CONC 33.2 g/dL (32.0-36.0); Mean Corpuscular Hemoglobin 30.8 pg (27.0-31.0); Mean Corpuscular Volume 92.7 fL (78.0-98.0); Mean Platelet Volume 5.8 fL (7.4-10.4); Platelet Count 163 thou/uL (130-400); RBC Distribution Width 14.4 % (11.5-14.5); Red Blood Cell (RBC) Count 3.84 mill/uL (4.70-6.10); White Blood Cell (WBC) Count 5.5 thou/uL (4.8-10.8)
[2022-01-31 05:46] LABS: ALT (SGPT) 20 U/L (8-55); AST (SGOT) 14 U/L (5-34); Albumin 3.2 g/dL (3.4-4.8); Alkaline Phosphatase 88 U/L (40-110); Anion Gap 12 mmol/L (10-20); BUN (Urea Nitrogen) 44 mg/dL (8.4-25.7); Bilirubin, Total 0.3 mg/dL (0.2-1.2); Calc. Creatinine Clearance 80 mL/min (70-130); Calcium 9.1 mg/dL (7.8-10.44); Carbon Dioxide 28 mmol/L (23-31); Chloride 105 mmol/L (98-107); Globulin 2.9 g/dL (2.4-3.5); Potassium 4.3 mmol/L (3.5-5.1); Protein, Total 6.1 g/dL (5.8-8.1); Sodium 141 mmol/L (136-145)
[2022-01-31 06:00] LABS: Glucose 178 mg/dL (83-110)
[2022-01-31] MEDS: Lantus 1000 UNITS/10 ML VIAL SC SCH ×2 (08:21→20:56)
[2022-01-31] MEDS: Enoxaparin Sodium 40 MG/0.4 ML SYRINGE SC SCH (08:21)
[2022-01-31] MEDS: Losartan 25 MG TAB PO SCH (08:22)
[2022-01-31] MEDS: Hydrochlorothiazide 25 MG TAB PO SCH (08:22)
[2022-01-31] MEDS: Fish Oil 1,000 MG CAP PO SCH ×2 (08:22→20:41)
[2022-01-31] MEDS: Acetaminophen 325 MG TAB PO SCH ×3 (08:23→20:40)
[2022-01-31] MEDS: Saccharomyces boulardii 250 MG CAP PO SCH (08:23)
[2022-01-31] MEDS: metroNIDAZOLE 250 MG TAB PO SCH ×3 (08:24→20:41)
[2022-01-31] MEDS: Nebivolol HCl 5 MG TAB PO SCH (08:24)
[2022-01-31] MEDS: Polyethylene Glycol 3350 17 GM Packet PO SCH (08:25)
[2022-01-31] MEDS: Amlodipine 5 MG TAB PO SCH (08:29)
[2022-01-31] MEDS: Aspirin Chewable 81 MG TAB PO SCH (08:29)
[2022-01-31] MEDS: HumaLOG 300 UNITS/3 ML VIAL SC PRN (14:33)
[2022-01-31] MEDS: Nicotine 21 MG PATCH TOP SCH (17:22)
[2022-01-31] MEDS: Vancomycin HCl 1 GM in Sodium Chloride 0.9% 250 ML 250 ML IVPB SCH (20:40)
[2022-01-31] MEDS: Vancomycin HCl 750 MG in Sodium Chloride 0.9% 250 ML 250 ML IVPB SCH (20:40)
[2022-01-31] MEDS: Atorvastatin Calcium 40 MG TAB PO SCH (20:41)
[2022-01-31] MEDS: Melatonin 3 MG TAB PO PRN (22:05)
[2022-01-31] MEDS: HYDROcodone/Acetaminophen 10/325 mg Tablet PO PRN (22:06)
[2022-02-01] MEDS: HYDROcodone/Acetaminophen 10/325 mg Tablet PO PRN ×2 (04:57→20:31)
[2022-02-01] MEDS: Lantus 1000 UNITS/10 ML VIAL SC SCH ×2 (10:14→20:37)
[2022-02-01] MEDS: Enoxaparin Sodium 40 MG/0.4 ML SYRINGE SC SCH (10:15)
[2022-02-01] MEDS: Amlodipine 5 MG TAB PO SCH (10:16)
[2022-02-01] MEDS: Nebivolol HCl 5 MG TAB PO SCH (10:18)
[2022-02-01] MEDS: Hydrochlorothiazide 25 MG TAB PO SCH (10:18)
[2022-02-01] MEDS: metroNIDAZOLE 250 MG TAB PO SCH ×3 (10:18→20:27)
[2022-02-01] MEDS: Fish Oil 1,000 MG CAP PO SCH ×2 (10:19→20:27)
[2022-02-01] MEDS: Saccharomyces boulardii 250 MG CAP PO SCH (10:19)
[2022-02-01] MEDS: Aspirin Chewable 81 MG TAB PO SCH (10:19)
[2022-02-01] MEDS: Acetaminophen 325 MG TAB PO SCH ×3 (10:20→20:26)
[2022-02-01] MEDS: Losartan 25 MG TAB PO SCH (10:21)
[2022-02-01] MEDS: HYDROcodone/Acetaminophen 5/325 mg Tablet PO PRN (10:25)
[2022-02-01] MEDS: Polyethylene Glycol 3350 17 GM Packet PO SCH (10:28)
[2022-02-01] MEDS: HumaLOG 300 UNITS/3 ML VIAL SC PRN ×3 (12:39→20:39)
[2022-02-01] MEDS: Nicotine 21 MG PATCH TOP SCH (15:31)
[2022-02-01] MEDS: Melatonin 3 MG TAB PO PRN (20:27)
[2022-02-01] MEDS: Atorvastatin Calcium 40 MG TAB PO SCH (20:27)
[2022-02-01] MEDS: Vancomycin HCl 1 GM in Sodium Chloride 0.9% 250 ML 250 ML IVPB SCH (20:31)
[2022-02-01] MEDS: Vancomycin HCl 750 MG in Sodium Chloride 0.9% 250 ML 250 ML IVPB SCH (20:32)
[2022-02-02] MEDS: HYDROcodone/Acetaminophen 10/325 mg Tablet PO PRN ×3 (01:39→20:14)
[2022-02-02] MEDS: Acetaminophen 325 MG TAB PO SCH ×3 (07:49→20:09)
[2022-02-02] MEDS: Amlodipine 5 MG TAB PO SCH (07:52)
[2022-02-02] MEDS: metroNIDAZOLE 250 MG TAB PO SCH ×3 (07:52→20:11)
[2022-02-02] MEDS: Aspirin Chewable 81 MG TAB PO SCH (07:54)
[2022-02-02] MEDS: Fish Oil 1,000 MG CAP PO SCH ×2 (07:55→20:11)
[2022-02-02] MEDS: Saccharomyces boulardii 250 MG CAP PO SCH (07:55)
[2022-02-02] MEDS: Hydrochlorothiazide 25 MG TAB PO SCH (07:56)
[2022-02-02] MEDS: Losartan 25 MG TAB PO SCH (07:58)
[2022-02-02] MEDS: Enoxaparin Sodium 40 MG/0.4 ML SYRINGE SC SCH (07:58)
[2022-02-02] MEDS: Lantus 1000 UNITS/10 ML VIAL SC SCH ×2 (08:04→20:12)
[2022-02-02] MEDS: HumaLOG 300 UNITS/3 ML VIAL SC PRN ×3 (08:11→17:43)
[2022-02-02] MEDS: Polyethylene Glycol 3350 17 GM Packet PO SCH (08:30)
[2022-02-02] MEDS: Nebivolol HCl 5 MG TAB PO SCH (08:31)
[2022-02-02] MEDS: Nicotine 21 MG PATCH TOP SCH (15:41)
[2022-02-02 19:20] LABS: Vancomycin, Trough 18.4 ug/mL
[2022-02-02] MEDS: Vancomycin HCl 1 GM in Sodium Chloride 0.9% 250 ML 250 ML IVPB SCH (19:51)
[2022-02-02] MEDS: Vancomycin HCl 750 MG in Sodium Chloride 0.9% 250 ML 250 ML IVPB SCH (19:53)
[2022-02-02] MEDS: Atorvastatin Calcium 40 MG TAB PO SCH (20:09)
[2022-02-02] MEDS: Melatonin 3 MG TAB PO PRN (20:15)
[2022-02-03] MEDS: HYDROcodone/Acetaminophen 10/325 mg Tablet PO PRN ×3 (02:47→22:13)
[2022-02-03] MEDS: Lantus 1000 UNITS/10 ML VIAL SC SCH ×2 (08:21→21:54)
[2022-02-03] MEDS: HumaLOG 300 UNITS/3 ML VIAL SC PRN ×3 (08:21→21:52)
[2022-02-03] MEDS: metroNIDAZOLE 250 MG TAB PO SCH ×3 (08:24→21:47)
[2022-02-03] MEDS: Polyethylene Glycol 3350 17 GM Packet PO SCH (08:25)
[2022-02-03] MEDS: Losartan 25 MG TAB PO SCH (08:25)
[2022-02-03] MEDS: Acetaminophen 325 MG TAB PO SCH ×3 (08:25→21:47)
[2022-02-03] MEDS: Aspirin Chewable 81 MG TAB PO SCH (08:26)
[2022-02-03] MEDS: Fish Oil 1,000 MG CAP PO SCH ×2 (08:26→21:47)
[2022-02-03] MEDS: Amlodipine 5 MG TAB PO SCH (08:26)
[2022-02-03] MEDS: Nebivolol HCl 5 MG TAB PO SCH (08:29)
[2022-02-03] MEDS: Hydrochlorothiazide 25 MG TAB PO SCH (08:29)
[2022-02-03] MEDS: Enoxaparin Sodium 40 MG/0.4 ML SYRINGE SC SCH (08:30)
[2022-02-03] MEDS: Saccharomyces boulardii 250 MG CAP PO SCH (08:30)
[2022-02-03] MEDS: Nicotine 21 MG PATCH TOP SCH (17:47)
[2022-02-03] MEDS: Atorvastatin Calcium 40 MG TAB PO SCH (21:47)
[2022-02-03] MEDS: Melatonin 3 MG TAB PO PRN (21:48)
[2022-02-03] MEDS: Vancomycin HCl 750 MG in Sodium Chloride 0.9% 250 ML 250 ML IVPB SCH (21:49)
[2022-02-03] MEDS: Vancomycin HCl 1 GM in Sodium Chloride 0.9% 250 ML 250 ML IVPB SCH (21:50)
[2022-02-04 00:14] LABS: SARS-CoV-2 PCR by NAA Not Detected (NotDetected)
[2022-02-04] MEDS: HYDROcodone/Acetaminophen 10/325 mg Tablet PO PRN ×3 (05:03→20:33)
[2022-02-04] MEDS: Lantus 1000 UNITS/10 ML VIAL SC SCH ×2 (08:15→20:33)
[2022-02-04] MEDS: HumaLOG 300 UNITS/3 ML VIAL SC PRN (08:15)
[2022-02-04] MEDS: Enoxaparin Sodium 40 MG/0.4 ML SYRINGE SC SCH (08:16)
[2022-02-04] MEDS: Fish Oil 1,000 MG CAP PO SCH ×2 (08:17→20:34)
[2022-02-04] MEDS: Amlodipine 5 MG TAB PO SCH (08:17)
[2022-02-04] MEDS: Aspirin Chewable 81 MG TAB PO SCH (08:17)
[2022-02-04] MEDS: Nebivolol HCl 5 MG TAB PO SCH (08:17)
[2022-02-04] MEDS: metroNIDAZOLE 250 MG TAB PO SCH ×3 (08:18→20:34)
[2022-02-04] MEDS: Losartan 25 MG TAB PO SCH (08:18)
[2022-02-04] MEDS: Hydrochlorothiazide 25 MG TAB PO SCH (08:18)
[2022-02-04] MEDS: Saccharomyces boulardii 250 MG CAP PO SCH (08:18)
[2022-02-04] MEDS: Acetaminophen 325 MG TAB PO SCH ×3 (08:26→20:35)
[2022-02-04] MEDS: Polyethylene Glycol 3350 17 GM Packet PO SCH (08:26)
[2022-02-04] MEDS: Nicotine 21 MG PATCH TOP SCH (17:22)
[2022-02-04] MEDS: Vancomycin HCl 1 GM in Sodium Chloride 0.9% 250 ML 250 ML IVPB SCH (20:30)
[2022-02-04] MEDS: Vancomycin HCl 750 MG in Sodium Chloride 0.9% 250 ML 250 ML IVPB SCH (20:32)
[2022-02-04] MEDS: Atorvastatin Calcium 40 MG TAB PO SCH (20:34)
[2022-02-04] MEDS: Melatonin 3 MG TAB PO PRN (20:34)
[2022-02-05] MEDS: HYDROcodone/Acetaminophen 10/325 mg Tablet PO PRN ×3 (03:36→20:31)
[2022-02-05] MEDS: Fish Oil 1,000 MG CAP PO SCH ×2 (09:26→20:26)
[2022-02-05] MEDS: Hydrochlorothiazide 25 MG TAB PO SCH (09:27)
[2022-02-05] MEDS: Nebivolol HCl 5 MG TAB PO SCH (09:27)
[2022-02-05] MEDS: metroNIDAZOLE 250 MG TAB PO SCH ×3 (09:28→21:11)
[2022-02-05] MEDS: Amlodipine 5 MG TAB PO SCH (09:28)
[2022-02-05] MEDS: Losartan 25 MG TAB PO SCH (09:28)
[2022-02-05] MEDS: Aspirin Chewable 81 MG TAB PO SCH (09:28)
[2022-02-05] MEDS: Enoxaparin Sodium 40 MG/0.4 ML SYRINGE SC SCH (09:29)
[2022-02-05] MEDS: Lantus 1000 UNITS/10 ML VIAL SC SCH ×2 (09:29→20:22)
[2022-02-05] MEDS: Polyethylene Glycol 3350 17 GM Packet PO SCH (09:30)
[2022-02-05] MEDS: Saccharomyces boulardii 250 MG CAP PO SCH (09:30)
[2022-02-05] MEDS: Acetaminophen 325 MG TAB PO SCH ×3 (09:30→20:24)
[2022-02-05] MEDS: Nicotine 21 MG PATCH TOP SCH (18:28)
[2022-02-05] MEDS: HumaLOG 300 UNITS/3 ML VIAL SC PRN ×2 (18:32→20:23)
[2022-02-05 19:25] LABS: Vancomycin, Trough 19.6 ug/mL
[2022-02-05] MEDS: Atorvastatin Calcium 40 MG TAB PO SCH (20:27)
[2022-02-05] MEDS: Melatonin 3 MG TAB PO PRN (20:28)
[2022-02-05] MEDS: Vancomycin HCl 1 GM in Sodium Chloride 0.9% 250 ML 250 ML IVPB SCH (20:34)
[2022-02-05] MEDS: Vancomycin HCl 750 MG in Sodium Chloride 0.9% 250 ML 250 ML IVPB SCH (20:35)
[2022-02-05] MEDS: Vancomycin HCl 500 MG in Sodium Chloride 0.9% 100 ML IVPB SCH (21:10)
[2022-02-06] MEDS: Enoxaparin Sodium 40 MG/0.4 ML SYRINGE SC SCH (08:02)
[2022-02-06] MEDS: Fish Oil 1,000 MG CAP PO SCH ×2 (08:02→20:47)
[2022-02-06] MEDS: Acetaminophen 325 MG TAB PO SCH ×3 (08:03→20:49)
[2022-02-06] MEDS: Losartan 25 MG TAB PO SCH (08:03)
[2022-02-06] MEDS: Nebivolol HCl 5 MG TAB PO SCH (08:03)
[2022-02-06] MEDS: Saccharomyces boulardii 250 MG CAP PO SCH (08:04)
[2022-02-06] MEDS: Hydrochlorothiazide 25 MG TAB PO SCH (08:05)
[2022-02-06] MEDS: Amlodipine 5 MG TAB PO SCH (08:05)
[2022-02-06] MEDS: Aspirin Chewable 81 MG TAB PO SCH (08:06)
[2022-02-06] MEDS: metroNIDAZOLE 250 MG TAB PO SCH ×3 (08:07→20:48)
[2022-02-06] MEDS: Lantus 1000 UNITS/10 ML VIAL SC SCH ×2 (08:09→21:06)
[2022-02-06] MEDS: Polyethylene Glycol 3350 17 GM Packet PO SCH (08:17)
[2022-02-06] MEDS: HYDROcodone/Acetaminophen 5/325 mg Tablet PO PRN ×2 (10:28→20:58)
[2022-02-06] MEDS: Nicotine 21 MG PATCH TOP SCH (17:38)
[2022-02-06] MEDS: HumaLOG 300 UNITS/3 ML VIAL SC PRN (18:30)
[2022-02-06] MEDS: Vancomycin HCl 1 GM in Sodium Chloride 0.9% 250 ML 250 ML IVPB SCH (20:50)
[2022-02-06] MEDS: Atorvastatin Calcium 40 MG TAB PO SCH (20:51)
[2022-02-06] MEDS: tiZANidine HCl 4 MG TAB PO PRN (20:58)
[2022-02-06] MEDS: Vancomycin HCl 500 MG in Sodium Chloride 0.9% 100 ML IVPB SCH (20:59)
[2022-02-07 05:38] LABS: #Eosinphils 0.1 thou/uL (0.0-0.7); #Lymphocytes 1.4 thou/uL (1.20-3.40); #Monocytes 0.7 thou/uL (0.11-0.59); #Neutrophils 3.7 thou/uL (1.40-6.50); %Basophils 0.4 % (0.0-1.0); %Lymphocytes 24.2 % (21.0-51.0); %Monocytes 11.2 % (0.0-10.0); %Neutrophils 62.2 % (42.0-75.0); Hemoglobin 12.3 g/dL (14.0-18.0); Mean Corpuscular Hemoglobin 30.7 pg (27.0-31.0); Mean Corpuscular Volume 90.4 fL (78.0-98.0); Mean Platelet Volume 5.9 fL (7.4-10.4); Platelet Count 200 thou/uL (130-400)
[2022-02-07 05:49] LABS: ALT (SGPT) 24 U/L (8-55); AST (SGOT) 16 U/L (5-34); Albumin 3.3 g/dL (3.4-4.8); Alkaline Phosphatase 92 U/L (40-110); Anion Gap 13 mmol/L (10-20); BUN (Urea Nitrogen) 41 mg/dL (8.4-25.7); Bilirubin, Total 0.4 mg/dL (0.2-1.2); Calc. Creatinine Clearance 95 mL/min (70-130); Calcium 9.4 mg/dL (7.8-10.44); Carbon Dioxide 31 mmol/L (23-31); Chloride 104 mmol/L (98-107); Globulin 2.8 g/dL (2.4-3.5); Glucose 112 mg/dL (83-110); Potassium 4.3 mmol/L (3.5-5.1); Protein, Total 6.1 g/dL (5.8-8.1); Sodium 144 mmol/L (136-145)
[2022-02-07] MEDS: Enoxaparin Sodium 40 MG/0.4 ML SYRINGE SC SCH (08:21)
[2022-02-07] MEDS: Losartan 25 MG TAB PO SCH (08:22)
[2022-02-07] MEDS: Fish Oil 1,000 MG CAP PO SCH ×2 (08:22→20:56)
[2022-02-07] MEDS: Acetaminophen 325 MG TAB PO SCH ×3 (08:23→20:57)
[2022-02-07] MEDS: HYDROcodone/Acetaminophen 5/325 mg Tablet PO PRN ×2 (08:25→21:01)
[2022-02-07] MEDS: Hydrochlorothiazide 25 MG TAB PO SCH (08:26)
[2022-02-07] MEDS: Saccharomyces boulardii 250 MG CAP PO SCH (08:26)
[2022-02-07] MEDS: Amlodipine 5 MG TAB PO SCH (08:26)
[2022-02-07] MEDS: Nebivolol HCl 5 MG TAB PO SCH (08:26)
[2022-02-07] MEDS: Aspirin Chewable 81 MG TAB PO SCH (08:27)
[2022-02-07] MEDS: metroNIDAZOLE 250 MG TAB PO SCH ×3 (08:28→20:56)
[2022-02-07] MEDS: Polyethylene Glycol 3350 17 GM Packet PO SCH (08:28)
[2022-02-07] MEDS: Lantus 1000 UNITS/10 ML VIAL SC SCH ×2 (08:35→20:58)
[2022-02-07] MEDS: Nicotine 21 MG PATCH TOP SCH (16:08)
[2022-02-07] MEDS: HumaLOG 300 UNITS/3 ML VIAL SC PRN ×2 (19:15→20:58)
[2022-02-07 19:36] LABS: Vancomycin, Trough 18.8 ug/mL
[2022-02-07] MEDS: Vancomycin HCl 1 GM in Sodium Chloride 0.9% 250 ML 250 ML IVPB SCH (20:36)
[2022-02-07] MEDS: Vancomycin HCl 500 MG in Sodium Chloride 0.9% 100 ML IVPB SCH (20:37)
[2022-02-07] MEDS: Atorvastatin Calcium 40 MG TAB PO SCH (20:57)
[2022-02-07] MEDS: tiZANidine HCl 4 MG TAB PO PRN (21:02)
[2022-02-08] MEDS: HYDROcodone/Acetaminophen 5/325 mg Tablet PO PRN ×3 (02:56→21:19)
[2022-02-08] MEDS: Enoxaparin Sodium 40 MG/0.4 ML SYRINGE SC SCH (09:43)
[2022-02-08] MEDS: Fish Oil 1,000 MG CAP PO SCH ×2 (09:43→21:15)
[2022-02-08] MEDS: Acetaminophen 325 MG TAB PO SCH ×3 (09:44→21:16)
[2022-02-08] MEDS: Losartan 25 MG TAB PO SCH (09:44)
[2022-02-08] MEDS: Nebivolol HCl 5 MG TAB PO SCH (09:47)
[2022-02-08] MEDS: Aspirin Chewable 81 MG TAB PO SCH (09:47)
[2022-02-08] MEDS: Amlodipine 5 MG TAB PO SCH (09:47)
[2022-02-08] MEDS: Hydrochlorothiazide 25 MG TAB PO SCH (09:47)
[2022-02-08] MEDS: Saccharomyces boulardii 250 MG CAP PO SCH (09:48)
[2022-02-08] MEDS: Polyethylene Glycol 3350 17 GM Packet PO SCH (09:48)
[2022-02-08] MEDS: metroNIDAZOLE 250 MG TAB PO SCH ×3 (09:49→21:16)
[2022-02-08] MEDS: Lantus 1000 UNITS/10 ML VIAL SC SCH ×2 (09:50→21:31)
[2022-02-08] MEDS: HumaLOG 300 UNITS/3 ML VIAL SC PRN ×4 (09:52→21:32)
[2022-02-08] MEDS: Nicotine 21 MG PATCH TOP SCH (14:25)
[2022-02-08] MEDS: Vancomycin HCl 1 GM in Sodium Chloride 0.9% 250 ML 250 ML IVPB SCH (20:55)
[2022-02-08] MEDS: Vancomycin HCl 500 MG in Sodium Chloride 0.9% 100 ML IVPB SCH (21:14)
[2022-02-08] MEDS: tiZANidine HCl 4 MG TAB PO PRN (21:15)
[2022-02-08] MEDS: Atorvastatin Calcium 40 MG TAB PO SCH (21:17)
[2022-02-09] MEDS: HYDROcodone/Acetaminophen 5/325 mg Tablet PO PRN ×2 (02:12→09:05)
[2022-02-09] MEDS: Losartan 25 MG TAB PO SCH (09:06)
[2022-02-09] MEDS: Fish Oil 1,000 MG CAP PO SCH ×2 (09:06→21:01)
[2022-02-09] MEDS: Acetaminophen 325 MG TAB PO SCH ×3 (09:07→21:00)
[2022-02-09] MEDS: Nebivolol HCl 5 MG TAB PO SCH (09:08)
[2022-02-09] MEDS: Saccharomyces boulardii 250 MG CAP PO SCH (09:10)
[2022-02-09] MEDS: Aspirin Chewable 81 MG TAB PO SCH (09:10)
[2022-02-09] MEDS: Amlodipine 5 MG TAB PO SCH (09:10)
[2022-02-09] MEDS: Hydrochlorothiazide 25 MG TAB PO SCH (09:13)
[2022-02-09] MEDS: Enoxaparin Sodium 40 MG/0.4 ML SYRINGE SC SCH (09:13)
[2022-02-09] MEDS: metroNIDAZOLE 250 MG TAB PO SCH ×3 (09:14→21:02)
[2022-02-09] MEDS: Lantus 1000 UNITS/10 ML VIAL SC SCH ×2 (09:14→21:02)
[2022-02-09] MEDS: Polyethylene Glycol 3350 17 GM Packet PO SCH (09:24)
[2022-02-09] MEDS: HumaLOG 300 UNITS/3 ML VIAL SC PRN ×3 (12:53→21:02)
[2022-02-09] MEDS: Nicotine 21 MG PATCH TOP SCH (16:49)
[2022-02-09] MEDS: HYDROcodone/Acetaminophen 10/325 mg Tablet PO PRN (20:59)
[2022-02-09] MEDS: tiZANidine HCl 4 MG TAB PO PRN (21:00)
[2022-02-09] MEDS: Atorvastatin Calcium 40 MG TAB PO SCH (21:01)
[2022-02-10] MEDS: HYDROcodone/Acetaminophen 5/325 mg Tablet PO PRN (04:02)
[2022-02-10 05:49] VITALS: TEMP 97.6
[2022-02-10] MEDS: Lantus 1000 UNITS/10 ML VIAL SC SCH (08:54)
[2022-02-10] MEDS: Losartan 25 MG TAB PO SCH (09:00)
[2022-02-10] MEDS: metroNIDAZOLE 250 MG TAB PO SCH (09:02)
[2022-02-10] MEDS: Amlodipine 5 MG TAB PO SCH (09:02)
[2022-02-10] MEDS: Nebivolol HCl 5 MG TAB PO SCH (09:02)
[2022-02-10] MEDS: Hydrochlorothiazide 25 MG TAB PO SCH (09:02)
[2022-02-10] MEDS: Fish Oil 1,000 MG CAP PO SCH (09:03)
[2022-02-10] MEDS: Polyethylene Glycol 3350 17 GM Packet PO SCH (09:03)
[2022-02-10] MEDS: Enoxaparin Sodium 40 MG/0.4 ML SYRINGE SC SCH (09:03)
[2022-02-10] MEDS: Saccharomyces boulardii 250 MG CAP PO SCH (09:03)
[2022-02-10] MEDS: Aspirin Chewable 81 MG TAB PO SCH (09:03)
[2022-02-10 09:10] VITALS: BP 126/73
[2022-02-10] MEDS: Acetaminophen 325 MG TAB PO SCH (09:24)
[2022-02-10] MEDS: HYDROcodone/Acetaminophen 10/325 mg Tablet PO PRN (11:04)
== END 2022-02-10 11:10 | disposition home or self-care (01) | DRG 300 ==
LOC: BURMED 15:01
PROVIDERS: ADMIT Family Medicine; ATTEND Family Medicine
DX: E11.52 Type 2 diabetes mellitus with diabetic peripheral angiopathy with gangrene (principal); L97.419 Non-pressure chronic ulcer of right heel and midfoot with unspecified severity; E11.621 Type 2 diabetes mellitus with foot ulcer; Z20.822 Contact with and (suspected) exposure to COVID-19; E78.5 Hyperlipidemia, unspecified; G89.29 Other chronic pain; M54.9 Dorsalgia, unspecified; I12.9 Hypertensive chronic kidney disease with stage 1 through stage 4 chronic kidney disease, or unspecified chronic kidney disease; N18.30 Chronic kidney disease, stage 3 unspecified; E66.01 Morbid (severe) obesity due to excess calories; Z96.651 Presence of right artificial knee joint; Z79.4 Long term (current) use of insulin; Z89.421 Acquired absence of other right toe(s); Z79.82 Long term (current) use of aspirin; Z79.899 Other long term (current) drug therapy
CPT/HCPCS: 36415; 36416; 80053; 80202; 82565; 85025; 86140; 97602; J1650; J1815; J3370; J3490; J7050; U0002; U0003; U0005

== ENCOUNTER 2022-03-27 14:20 | Emergency (ER) | payer MEDICARE ==
[2022-03-27 15:13] LABS: Bilirubin Negative (Negative); Blood, Urine Negative (Negative); Clarity Clear (Clear); Glucose, Urine (Dipstick) Negative (Negative); Ketone, Urine Negative (Negative); Leukocyte Negative (Negative); Nitrite Negative (Negative); Protein, Urine (Dipstick) Negative (Neg-Trace); Urobilinogen 0.2 mg/dL (Less than 2)
== END 2022-03-27 15:20 | disposition home or self-care (01) ==
LOC: BURERS 14:20
DX: M54.50 Low back pain, unspecified (principal); I10 Essential (primary) hypertension; E78.5 Hyperlipidemia, unspecified; E66.9 Obesity, unspecified; E10.9 Type 1 diabetes mellitus without complications; E78.2 Mixed hyperlipidemia; F17.220 Nicotine dependence, chewing tobacco, uncomplicated; Z79.899 Other long term (current) drug therapy; Z79.84 Long term (current) use of oral hypoglycemic drugs; Z79.82 Long term (current) use of aspirin
CPT/HCPCS: 81003; 99283